=== PATIENT | female | born 1950 | race Caucasian/White ===

== ENCOUNTER 2020-09-03 11:52 | Emergency (ER) | payer BC ==
[2020-09-03 12:32] VITALS: BP 135/81; PULSE 84; BMI 29.2
[2020-09-03] MEDS ORDERED: morphine CARPU-JECT 4 MG/1 ML DISP.SYRIN IVPUSH ONE (13:38)
[2020-09-03] MEDS ORDERED: morphine SULFATE 4 MG/ML VIAL ONE (13:51)
[2020-09-03 14:11] LABS: BASO % 1.1 % (0-2.0); EOS % 2.4 % (0-4.5); HEMATOCRIT 42.3 % (32.4-45.2); LYMPH % 38.9 % (8-40); MCH 29.8 pg (25.7-33.7); MEAN CELL VOLUME 90.5 fl (80-96); MEAN PLT VOLUME 7.2 fl (7.5-11.1); MONO % 8.7 % (3.8-10.2); NEUT % 48.9 % (42.8-82.8); PLATELET COUNT 331 K/MM3 (134-434); RBC 4.68 M/mm3 (3.60-5.2); RDW 14.4 % (11.6-15.6); WHITE BLOOD COUNT 9.6 K/mm3 (4.0-10.0)
[2020-09-03 14:26] LABS: POTASSIUM 4.4 mmol/L (3.5-5.1)
[2020-09-03 14:28] LABS: CALCIUM 9.9 mg/dL (8.5-10.1)
[2020-09-03 14:29] LABS: ALBUMIN 3.9 g/dl (3.4-5.0); BLOOD UREA NITROGEN 16.1 mg/dL (7-18)
[2020-09-03 14:32] LABS: CREATININE 0.6 mg/dL (0.55-1.3)
[2020-09-03 14:34] LABS: TOT PROT 7.1 g/dl (6.4-8.2)
[2020-09-03 14:39] LABS: BILIRUBIN,TOTAL 1.4 mg/dL (0.2-1)
[2020-09-03] MEDS ORDERED: KETOROLAC TROMETHAMINE 30 MG/1 ML VIAL IVPUSH ONE (16:38)
[2020-09-03] MEDS ORDERED: KETOROLAC TROMETHAMINE 30 MG/1 ML VIAL ONE (17:08)
== END 2020-09-03 18:41 | disposition home or self-care (01) ==
LOC: JERFT 11:52
PROC: 3E0333Z Introduction of Anti-inflammatory into Peripheral Vein, Percutaneous Approach (ICD-10-PCS; principal; 2020-09-03)
PROC: 3E033NZ Introduction of Analgesics, Hypnotics, Sedatives into Peripheral Vein, Percutaneous Approach (ICD-10-PCS; 2020-09-03)
DX: M79.601 Pain in right arm (principal)
CPT/HCPCS: 36415; 71046-TC-FY; 72040-TC; 72070-TC-FY; 80053; 85025; 99285-25

== ENCOUNTER 2024-07-10 04:17 | Inpatient (IN) | payer BC, OTHER ==
[2024-07-10 04:37] VITALS: BMI 25.7
[2024-07-10] MEDS ORDERED: methylPREDNISolone NA SUCC 125 MG/2 ML VIAL ONE (05:23)
[2024-07-10] MEDS ORDERED: MAGNESIUM SULFATE IN WATER 2 GM/50 ML IVPB IVPB ONE ×2 (05:23→05:38)
[2024-07-10] MEDS: methylPREDNISolone NA SUCC 125 MG/2 ML VIAL IVPUSH ONE (05:30)
[2024-07-10] MEDS ORDERED: CEFTRIAXONE 1 G/50 ML PREMIX 50 ML IVPB ONE (05:38)
[2024-07-10] MEDS ORDERED: AZITHROMYCIN IVPB 500 MG/250 ML BAG IVPB ONE (05:38)
[2024-07-10 05:40] LABS: VENOUS BASE EXCESS 1.2 mmol/L (-2-2); VENOUS O2 SATURATION 64.6 % (70-80); VENOUS PCO2 53.8 mmHg (38-52); VENOUS PH 7.343 (7.310-7.410)
[2024-07-10 05:44] LABS: BASO % 0.6 % (0-2.0); EOS % 0.1 % (0-4.5); HEMATOCRIT 54.8 % (32.4-45.2); MCH 31.3 pg (25.7-33.7); MCHC 32.9 g/dl (32.0-36.0); MEAN PLT VOLUME 7.5 fl (7.5-11.1); MONO % 12.6 % (3.8-10.2); NEUT % 67.7 % (42.8-82.8); PLATELET COUNT 244 10^3/uL (134-434); RBC 5.76 M/mm3 (3.60-5.2); RDW 14.9 % (11.6-15.6); WHITE BLOOD COUNT 8.9 K/mm3 (4.0-10.0)
[2024-07-10 05:45] LABS: INR 1.06 (0.83-1.09)
[2024-07-10 05:48] LABS: ACTIVATED PTT 31.2 SECONDS (25.2-36.5)
[2024-07-10] MEDS: CEFTRIAXONE 1,000 MG in DEXTROSE 5%-WATER - 50 ML IVPB ONE (05:52)
[2024-07-10] MEDS: ALBUTEROL SO4 2.5/IPRATROPIUM 0.5 INH SOL 3 ML VIAL.NEB. NEB SCH ×2 (05:52→14:00)
[2024-07-10] MEDS: MAGNESIUM SULFATE IN WATER 2 GM/50 ML IVPB IVPB ONE (05:52)
[2024-07-10] MEDS: AZITHROMYCIN IVPB 500 MG in DEXTROSE 5%-WATER - 250 ML IVPB ONE (05:52)
[2024-07-10 05:55] LABS: POTASSIUM 3.7 mmol/L (3.5-5.1)
[2024-07-10 05:56] LABS: CALCIUM 9.8 mg/dL (8.5-10.1)
[2024-07-10 05:58] LABS: ALBUMIN 3.9 g/dl (3.4-5.0); BLOOD UREA NITROGEN 18.5 mg/dL (7-18); MAGNESIUM 1.7 mg/dL (1.8-2.4)
[2024-07-10 06:01] LABS: CREATININE 0.9 mg/dL (0.55-1.3)
[2024-07-10 06:02] LABS: BILIRUBIN,TOTAL 0.5 mg/dL (0.2-1); TOT PROT 7.5 g/dl (6.4-8.2)
[2024-07-10 06:06] LABS: N-TERMINAL BNP 644.8 pg/ml (5-450)
[2024-07-10 06:08] LABS: LACTIC ACID 2.2 mmol/L (0.4-2.0)
[2024-07-10] MEDS: D5-1/2NS+10 MEQ KCL - 10 MEQ/1,000 ML INFUS.BAG IV SCH (08:54)
[2024-07-10] MEDS ORDERED: PANTOPRAZOLE 40 MG TABLET PO ONE (09:23)
[2024-07-10] MEDS ORDERED: ENOXAPARIN NA (PORCINE) 40 MG/0.4 ML DISP.SYRIN SQ ONE (09:24)
[2024-07-10] MEDS: ENOXAPARIN NA (PORCINE) 40 MG/0.4 ML DISP.SYRIN SQ SCH (10:03)
[2024-07-10] MEDS: PANTOPRAZOLE 40 MG TABLET PO SCH (10:03)
[2024-07-10 12:55] LABS: ARTERIAL BLD GAS O2 SATURATION 97.6 % (95-98); ARTERIAL BLOOD GAS BASE EXCESS -1.3 mmol/L (-2-2); ARTERIAL BLOOD GAS PO2 104.3 mmHg (80-100); ARTERIAL BLOOD GAS pH 7.363 (7.350-7.450)
[2024-07-10 13:00] LABS: ALLENS TEST POSITIVE; VENT MODE S/T
[2024-07-10 13:01] LABS: VENT RATE 12
[2024-07-10 13:59] LABS: LACTIC ACID 4.2 mmol/L (0.4-2.0)
[2024-07-10 16:21] LABS: LACTIC ACID 3.2 mmol/L (0.4-2.0)
[2024-07-10] MEDS: clonazePAM 0.5 MG TABLET PO SCH (18:12)
[2024-07-11 06:39] LABS: BASO % 0.5 % (0-2.0); EOS % 0.5 % (0-4.5); HEMATOCRIT 47.7 % (32.4-45.2); HEMOGLOBIN 15.7 GM/dL (10.7-15.3); MCH 31.5 pg (25.7-33.7); MCHC 32.9 g/dl (32.0-36.0); MEAN CELL VOLUME 95.7 fl (80-96); MEAN PLT VOLUME 7.4 fl (7.5-11.1); MONO % 10.3 % (3.8-10.2); NEUT % 69.7 % (42.8-82.8); PLATELET COUNT 219 10^3/uL (134-434); RBC 4.98 M/mm3 (3.60-5.2); RDW 14.3 % (11.6-15.6); WHITE BLOOD COUNT 10.7 K/mm3 (4.0-10.0)
[2024-07-11 06:58] LABS: POTASSIUM 3.9 mmol/L (3.5-5.1)
[2024-07-11 07:04] LABS: CALCIUM 9.1 mg/dL (8.5-10.1)
[2024-07-11 07:06] LABS: BLOOD UREA NITROGEN 17.3 mg/dL (7-18)
[2024-07-11 07:09] LABS: CREATININE 0.7 mg/dL (0.55-1.3)
[2024-07-11] MEDS: D5-1/2NS+10 MEQ KCL - 10 MEQ/1,000 ML INFUS.BAG IV SCH (10:27)
[2024-07-11] MEDS: methylPREDNISolone NA SUCC 40 MG/1 ML VIAL IVPB SCH (10:27)
[2024-07-11] MEDS: TEMAZEPAM 15 MG CAPSULE PO SCH (21:06)
[2024-07-12] MEDS: ACETAMINOPHEN 325 MG TABLET (FP) PO PRN (06:34)
[2024-07-12 07:58] LABS: BASO % 0.1 % (0-2.0); HEMATOCRIT 43.4 % (32.4-45.2); HEMOGLOBIN 14.8 GM/dL (10.7-15.3); LYMPH % 9.5 % (8-40); MCHC 34.2 g/dl (32.0-36.0); MEAN CELL VOLUME 93.7 fl (80-96); MEAN PLT VOLUME 7.6 fl (7.5-11.1); NEUT % 84.4 % (42.8-82.8); PLATELET COUNT 205 10^3/uL (134-434); RBC 4.62 M/mm3 (3.60-5.2); RDW 14.4 % (11.6-15.6); WHITE BLOOD COUNT 8.8 K/mm3 (4.0-10.0)
[2024-07-12 08:06] LABS: POTASSIUM 4.2 mmol/L (3.5-5.1)
[2024-07-12 08:18] LABS: CALCIUM 8.8 mg/dL (8.5-10.1)
[2024-07-12 08:19] LABS: BLOOD UREA NITROGEN 17.8 mg/dL (7-18)
[2024-07-12 08:22] LABS: CREATININE 0.7 mg/dL (0.55-1.3)
[2024-07-12] MEDS: ASPIRIN COATED 81 MG TABLET.EC PO SCH (09:42)
[2024-07-12] MEDS: LOSARTAN POTASSIUM 50 MG TABLET PO ONE (13:21)
[2024-07-12] MEDS: traMADol HCL 50 MG TABLET PO PRN (13:21)
[2024-07-12] MEDS: D5-1/2NS+10 MEQ KCL - 10 MEQ/1,000 ML INFUS.BAG IV SCH (13:23)
[2024-07-12] MEDS: amLODIPine BESYLATE 5 MG TABLET (FP) PO SCH (21:41)
[2024-07-13] MEDS: LOSARTAN POTASSIUM 50 MG TABLET PO SCH (06:53)
[2024-07-13 07:19] LABS: BASO % 0.1 % (0-2.0); HEMATOCRIT 44.7 % (32.4-45.2); LYMPH % 8.4 % (8-40); MCH 31.6 pg (25.7-33.7); MCHC 33.4 g/dl (32.0-36.0); MEAN CELL VOLUME 94.4 fl (80-96); MEAN PLT VOLUME 7.6 fl (7.5-11.1); MONO % 5.7 % (3.8-10.2); NEUT % 85.8 % (42.8-82.8); PLATELET COUNT 221 10^3/uL (134-434); RBC 4.74 M/mm3 (3.60-5.2); RDW 14.6 % (11.6-15.6); WHITE BLOOD COUNT 13.2 K/mm3 (4.0-10.0)
[2024-07-13 07:23] LABS: POTASSIUM 4.7 mmol/L (3.5-5.1)
[2024-07-13 07:28] LABS: BLOOD UREA NITROGEN 14.3 mg/dL (7-18)
[2024-07-13 07:29] LABS: CALCIUM 8.5 mg/dL (8.5-10.1)
[2024-07-13 07:32] LABS: CREATININE 0.6 mg/dL (0.55-1.3)
[2024-07-13 07:44] LABS: LACTIC ACID 2.4 mmol/L (0.4-2.0)
[2024-07-13] MEDS: metoPROLOL SUCCINATE 25 MG TAB.SR.24H (FP) PO SCH (08:43)
[2024-07-13] MEDS ORDERED: LISINOPRIL 5 MG TABLET PO SCH (10:00)
[2024-07-13 10:58] LABS: LACTIC ACID 3.4 mmol/L (0.4-2.0)
[2024-07-13] MEDS: D5-1/2NS+10 MEQ KCL - 10 MEQ/1,000 ML INFUS.BAG IV SCH ×2 (11:16→21:39)
[2024-07-13] MEDS: LORazepam 2 MG/ML SDV VIAL IVPUSH ONE (12:52)
[2024-07-14] MEDS: methylPREDNISolone NA SUCC 40 MG/1 ML VIAL IVPB SCH (07:06)
[2024-07-14 07:38] LABS: POTASSIUM 4.5 mmol/L (3.5-5.1)
[2024-07-14 07:42] LABS: CALCIUM 8.2 mg/dL (8.5-10.1)
[2024-07-14 07:43] LABS: BLOOD UREA NITROGEN 17.9 mg/dL (7-18)
[2024-07-14 07:45] LABS: CREATININE 0.7 mg/dL (0.55-1.3)
[2024-07-14 07:53] LABS: LACTIC ACID 2.2 mmol/L (0.4-2.0)
[2024-07-14 07:54] LABS: HEMATOCRIT 44.4 % (32.4-45.2); HEMOGLOBIN 14.5 GM/dL (10.7-15.3); MCH 31.1 pg (25.7-33.7); MCHC 32.6 g/dl (32.0-36.0); MEAN CELL VOLUME 95.2 fl (80-96); MEAN PLT VOLUME 7.7 fl (7.5-11.1); PLATELET COUNT 232 10^3/uL (134-434); RBC 4.66 M/mm3 (3.60-5.2); RDW 14.3 % (11.6-15.6); WHITE BLOOD COUNT 11.7 K/mm3 (4.0-10.0)
[2024-07-14 09:56] LABS: ANISOCYTOSIS 0; HELMET CELLS 0; HOWELL-JOLLY BODIES 0; MACROCYTOSIS 0; OVALOCYTE 0; ROULEAU 0; SICKELED CELLS 0; TARGET CELLS 0; TEAR DROP CELLS 0; TOXIC GRANULATION 0
[2024-07-14] MEDS: metoPROLOL SUCCINATE 25 MG TAB.SR.24H (FP) PO SCH (10:11)
[2024-07-14] MEDS: D5-1/2NS+10 MEQ KCL - 10 MEQ/1,000 ML INFUS.BAG IV SCH (10:20)
[2024-07-14] MEDS: INSULIN ASPART SLIDING SCALE (NOVOLOG) 1 VIAL SQ SCH (17:20)
[2024-07-14] MEDS: D5-1/2NS+20 MEQ KCL - 20 MEQ/1,000 ML INFUS.BAG IV SCH (17:23)
[2024-07-15] MEDS: METOPROLOL TARTRATE 5 MG/5 ML VIAL IVPUSH PRN (01:42)
[2024-07-15] MEDS: D5-1/2NS+20 MEQ KCL - 20 MEQ/1,000 ML INFUS.BAG IV SCH ×5 (01:45→17:08)
[2024-07-15] MEDS ORDERED: METOPROLOL TARTRATE 5 MG/5 ML VIAL IVPUSH PRN (02:16)
[2024-07-15] MEDS: INSULIN ASPART SLIDING SCALE (NOVOLOG) 1 VIAL SQ SCH ×2 (06:24→11:47)
[2024-07-15] MEDS ORDERED: INSULIN ASPART SLIDING SCALE (NOVOLOG) 1 VIAL SQ SCH (07:00)
[2024-07-15 08:02] LABS: HEMOGLOBIN 14.9 GM/dL (10.7-15.3); MCH 31.6 pg (25.7-33.7); MCHC 33.9 g/dl (32.0-36.0); MEAN CELL VOLUME 93.2 fl (80-96); MEAN PLT VOLUME 7.4 fl (7.5-11.1); PLATELET COUNT 256 10^3/uL (134-434); RBC 4.72 M/mm3 (3.60-5.2); RDW 14.4 % (11.6-15.6); WHITE BLOOD COUNT 11.1 K/mm3 (4.0-10.0)
[2024-07-15] MEDS: INSULIN (LEVEMIR) 100 UNITS/ML UNITS SQ SCH (08:07)
[2024-07-15] MEDS: INSULIN (LEVEMIR) 100 UNITS/ML UNITS SQ ONE (08:07)
[2024-07-15 08:16] LABS: LACTIC ACID 2.1 mmol/L (0.4-2.0)
[2024-07-15] MEDS: clonazePAM 0.5 MG TABLET PO ONE (09:04)
[2024-07-15 10:13] LABS: ANISOCYTOSIS 0; MACROCYTOSIS 0
[2024-07-15 10:24] LABS: LACTIC ACID 2.4 mmol/L (0.4-2.0)
[2024-07-15] MEDS: LOSARTAN POTASSIUM 50 MG TABLET PO SCH (10:47)
[2024-07-15] MEDS: amLODIPine BESYLATE 10 MG TABLET (FP) PO SCH (10:47)
[2024-07-15] MEDS: clonazePAM 0.5 MG TABLET PO PRN (10:53)
[2024-07-15] MEDS: guaiFENesin/CODEINE 10 ML UNIT-DOSE CUPS PO PRN (10:53)
[2024-07-15 13:03] LABS: POTASSIUM 4.2 mmol/L (3.5-5.1)
[2024-07-15 13:06] LABS: BLOOD UREA NITROGEN 13.8 mg/dL (7-18); CALCIUM 8.3 mg/dL (8.5-10.1)
[2024-07-15 13:09] LABS: CREATININE 0.6 mg/dL (0.55-1.3)
[2024-07-15 16:32] LABS: URINE APPEARANCE CLEAR; URINE BILIRUBIN NEGATIVE (NEGATIVE); URINE COLOR YELLOW; URINE GLUCOSE (UA) NEGATIVE (NEGATIVE); URINE KETONE NEGATIVE (NEGATIVE); URINE LEUK ESTERASE NEGATIVE (NEGATIVE); URINE NITRITE NEGATIVE (NEGATIVE); URINE PROTEIN NEGATIVE (NEGATIVE); URINE UROBILINOGEN 0.2 mg/dL (0.2-1.0)
[2024-07-16 07:39] LABS: HEMOGLOBIN 16.3 GM/dL (10.7-15.3); MCH 30.9 pg (25.7-33.7); MCHC 32.7 g/dl (32.0-36.0); MEAN CELL VOLUME 94.5 fl (80-96); MEAN PLT VOLUME 7.2 fl (7.5-11.1); PLATELET COUNT 306 10^3/uL (134-434); RBC 5.29 M/mm3 (3.60-5.2); RDW 14.1 % (11.6-15.6); WHITE BLOOD COUNT 8.9 K/mm3 (4.0-10.0)
[2024-07-16 07:55] LABS: POTASSIUM 4.7 mmol/L (3.5-5.1)
[2024-07-16 08:08] LABS: CALCIUM 8.4 mg/dL (8.5-10.1)
[2024-07-16 08:09] LABS: BLOOD UREA NITROGEN 16.1 mg/dL (7-18)
[2024-07-16 08:12] LABS: CREATININE 0.7 mg/dL (0.55-1.3)
[2024-07-16 10:40] LABS: ANISOCYTOSIS 0; HELMET CELLS 0; HOWELL-JOLLY BODIES 0; MACROCYTOSIS 0; OVALOCYTE 0; ROULEAU 0; SICKELED CELLS 0; TARGET CELLS 0; TEAR DROP CELLS 0; TOXIC GRANULATION 0
[2024-07-16] MEDS: metoPROLOL SUCCINATE 25 MG TAB.SR.24H (FP) PO SCH (12:06)
[2024-07-16] MEDS: INSULIN (LEVEMIR) 100 UNITS/ML UNITS SQ ONE (12:06)
[2024-07-16] MEDS: D5-1/2NS+20 MEQ KCL - 20 MEQ/1,000 ML INFUS.BAG IV SCH (12:07)
[2024-07-16] MEDS: metoPROLOL SUCCINATE 25 MG TAB.SR.24H (FP) PO ONE (13:17)
[2024-07-16] MEDS: LOSARTAN POTASSIUM 50 MG TABLET PO SCH (13:17)
[2024-07-16] MEDS: INSULIN (LEVEMIR) 100 UNITS/ML UNITS SQ SCH (21:03)
[2024-07-17 07:53] LABS: HEMATOCRIT 51.3 % (32.4-45.2); HEMOGLOBIN 16.6 GM/dL (10.7-15.3); MCH 30.7 pg (25.7-33.7); MCHC 32.4 g/dl (32.0-36.0); MEAN CELL VOLUME 94.8 fl (80-96); MEAN PLT VOLUME 7.2 fl (7.5-11.1); PLATELET COUNT 294 10^3/uL (134-434); RBC 5.41 M/mm3 (3.60-5.2); RDW 14.7 % (11.6-15.6); WHITE BLOOD COUNT 10.6 K/mm3 (4.0-10.0)
[2024-07-17 08:12] LABS: POTASSIUM 4.2 mmol/L (3.5-5.1)
[2024-07-17 08:16] LABS: CALCIUM 8.8 mg/dL (8.5-10.1)
[2024-07-17 08:17] LABS: BLOOD UREA NITROGEN 18.4 mg/dL (7-18)
[2024-07-17 08:20] LABS: CREATININE 0.7 mg/dL (0.55-1.3)
[2024-07-17 08:22] LABS: ALBUMIN 2.9 g/dl (3.4-5.0); BILIRUBIN,TOTAL 0.3 mg/dL (0.2-1)
[2024-07-17] MEDS: LOSARTAN POTASSIUM 50 MG TABLET PO SCH (09:02)
[2024-07-17] MEDS: methylPREDNISolone NA SUCC 40 MG/1 ML VIAL IVPUSH SCH (09:03)
[2024-07-17 09:37] LABS: ANISOCYTOSIS 0; HELMET CELLS 0; HOWELL-JOLLY BODIES 0; MACROCYTOSIS 0; OVALOCYTE 0; ROULEAU 0; SICKELED CELLS 0; TARGET CELLS 0; TEAR DROP CELLS 0; TOXIC GRANULATION 0
[2024-07-17] MEDS: OMEGA-3 ACID ETHYL ESTERS (FATTY-ACIDS) 1 GM CAPSULE (FP) PO SCH (10:30)
[2024-07-17] MEDS: ALBUTEROL SO4 2.5/IPRATROPIUM 0.5 INH SOL 3 ML VIAL.NEB. NEB SCH (21:27)
[2024-07-17] MEDS: ATORVASTATIN CA 40 MG TABLET (FP) PO SCH (21:30)
[2024-07-18 06:50] LABS: HEMATOCRIT 49.2 % (32.4-45.2); HEMOGLOBIN 16.3 GM/dL (10.7-15.3); MCH 31.2 pg (25.7-33.7); MCHC 33.1 g/dl (32.0-36.0); MEAN CELL VOLUME 94.3 fl (80-96); PLATELET COUNT 285 10^3/uL (134-434); RBC 5.22 M/mm3 (3.60-5.2); RDW 14.7 % (11.6-15.6)
[2024-07-18 06:52] LABS: POTASSIUM 4.4 mmol/L (3.5-5.1)
[2024-07-18 06:56] LABS: BLOOD UREA NITROGEN 21.8 mg/dL (7-18); CALCIUM 8.8 mg/dL (8.5-10.1)
[2024-07-18 07:00] LABS: CREATININE 0.7 mg/dL (0.55-1.3)
[2024-07-18 09:07] LABS: ANISOCYTOSIS 0; MACROCYTOSIS 0
[2024-07-18] MEDS: INSULIN (LEVEMIR) 100 UNITS/ML UNITS SQ ONE (09:36)
[2024-07-18 20:00] LABS: PH,URINE 6.5 (5.0-8.0); URINE APPEARANCE CLEAR; URINE BILIRUBIN NEGATIVE (NEGATIVE); URINE COLOR YELLOW; URINE GLUCOSE (UA) NEGATIVE (NEGATIVE); URINE KETONE NEGATIVE (NEGATIVE); URINE LEUK ESTERASE NEGATIVE (NEGATIVE); URINE NITRITE NEGATIVE (NEGATIVE); URINE PROTEIN NEGATIVE (NEGATIVE); URINE UROBILINOGEN 0.2 mg/dL (0.2-1.0)
[2024-07-18] MEDS: INSULIN (LEVEMIR) 100 UNITS/ML UNITS SQ SCH (21:43)
[2024-07-19 06:59] LABS: HEMATOCRIT 46.5 % (32.4-45.2); HEMOGLOBIN 15.2 GM/dL (10.7-15.3); MCH 31.2 pg (25.7-33.7); MCHC 32.6 g/dl (32.0-36.0); MEAN CELL VOLUME 95.7 fl (80-96); MEAN PLT VOLUME 7.2 fl (7.5-11.1); PLATELET COUNT 257 10^3/uL (134-434); RBC 4.86 M/mm3 (3.60-5.2); RDW 14.8 % (11.6-15.6)
[2024-07-19 07:14] LABS: POTASSIUM 4.4 mmol/L (3.5-5.1)
[2024-07-19 07:17] LABS: BLOOD UREA NITROGEN 28.1 mg/dL (7-18); CALCIUM 8.7 mg/dL (8.5-10.1)
[2024-07-19 07:21] LABS: CREATININE 0.8 mg/dL (0.55-1.3)
[2024-07-19 08:44] LABS: ANISOCYTOSIS 0; MACROCYTOSIS 0
[2024-07-19 20:14] VITALS: TEMP 97.8
[2024-07-19] MEDS ORDERED: MELATONIN 5 MG TABLETS PO PRN (21:56)
[2024-07-20 00:37] VITALS: BP 139/76; PULSE 71; RESP 14
== END 2024-07-20 01:38 | DRG 189 ==
LOC: JER 04:17 → JERBED 07:29 → J2W 13:03
PROVIDERS: ADMIT Internal Medicine; ATTEND Internal Medicine
DX: J96.01 Acute respiratory failure with hypoxia (principal); J44.1 Chronic obstructive pulmonary disease with (acute) exacerbation; I24.89 Other forms of acute ischemic heart disease; E87.20 Acidosis, unspecified; J96.02 Acute respiratory failure with hypercapnia; I10 Essential (primary) hypertension; M62.81 Muscle weakness (generalized); E86.0 Dehydration; F41.9 Anxiety disorder, unspecified; G47.00 Insomnia, unspecified; E83.42 Hypomagnesemia; B97.4 Respiratory syncytial virus as the cause of diseases classified elsewhere; I25.10 Atherosclerotic heart disease of native coronary artery without angina pectoris; M32.9 Systemic lupus erythematosus, unspecified; Z95.5 Presence of coronary angioplasty implant and graft; Z85.42 Personal history of malignant neoplasm of other parts of uterus
CPT/HCPCS: 0241U-QW; 36415; 36600; 71045-TC-FY; 80048; 80053; 80061; 81003; 82803; 82962; 83036; 83605; 83735; 83880; 84443; 84484; 85025; 85610; 85730; 86850; 86900; 86901; 87040; 87086; 87186; 87481; 93005; 93010; 93306-TC; 93970-TC; 94640; 94660; 97116-GP; 97162-GP; 99285-25